=== PATIENT | male | born 1995 | race Caucasian/White ===

== ENCOUNTER 2020-04-17 21:02 | Emergency (ER) | payer OTHER ==
[~2020-04-17] VITALS: Ht 180.3 cm; Wt 93.2 kg
--- NOTE | 2020-04-17 23:16 | REPVR ---
PROCEDURE INFORMATION: Exam: US Scrotum and US Duplex Artery and Vein, Scrotum, Complete Exam date and time: 04/17/2020 11:10 PM Age: 24 years old Clinical indication: Scrotum pain; Additional info: Testicular pain TECHNIQUE: Imaging protocol: Real-time ultrasound of the scrotum. Real-time duplex ultrasound scan of the arterial and venous flow of the scrotum with B-mode, color Doppler flow and spectral waveform analysis. Complete exam. Duplex images required to evaluate vascular conditions. COMPARISON: No relevant prior studies available. FINDINGS: Right testicle: Right testis measures 4.8 x 2.2 x 3.2 cm. Punctate echogenicities within the right testis, likely small calcifications. Otherwise, normal echogenicity. Normal arterial waveforms on duplex color spectral Doppler analysis. Left testicle: Left testis measures 4.5 x 2.3 x 2.8 cm, volume. Normal echogenicity. Normal arterial waveforms on duplex color spectral Doppler analysis. Epididymides: Normal. Scrotum: Normal. IMPRESSION: No acute findings. No evidence of testicular torsion. Electronically signed by: Santos Scanlon On 04/17/2020 23:16:56 PM
[2020-04-18] MEDS ORDERED: NAPROXEN 250 MG TAB PO ONE
[2020-04-18] MEDS ORDERED: NAPR-837 PO (00:02)
[2020-04-18 00:14] VITALS: BP 155/90
== END 2020-04-18 00:17 | disposition home or self-care (01) ==
LOC: M ED 21:02
DX: N50.811 Right testicular pain (principal); Z88.5 Allergy status to narcotic agent